=== PATIENT | female | born 1995 ===

== ENCOUNTER 2020-06-20 20:27 | Inpatient (IN) | payer BC ==
[2020-06-20] MEDS ORDERED: Misoprostol 200 MCG Tab PO PRN (22:31)
[2020-06-20] MEDS ORDERED: Water For Irrigation,Sterile 1,000 ML Container IRR PRN (22:31)
[2020-06-20] MEDS ORDERED: Sodium Chloride 0.9% 10 ML SDV IV PRN (22:31)
[2020-06-20] MEDS ORDERED: Carboprost Tromethamine 250 MCG/1 ML Amp IM PRN (22:31)
[2020-06-20] MEDS ORDERED: Sodium Chloride 0.9% 2.5 ML Syringe FLUSH PRN (22:31)
[2020-06-20] MEDS ORDERED: Lidocaine 1% 50 ML MDV INJECT PRN (22:31)
[2020-06-20] MEDS ORDERED: Butorphanol 1 MG/ML SDV IVPUSH PRN (22:31)
[2020-06-20] MEDS ORDERED: Nalbuphine 10 MG/1 ML Vial IVPUSH PRN (22:31)
[2020-06-20] MEDS ORDERED: Tranexamic Acid 1,000 MG in Sodium Chloride 0.9% 100 ML IV PRN (22:31)
[2020-06-20] MEDS ORDERED: Methylergonovine 0.2 MG/1 ML Amp IM PRN (22:31)
[2020-06-20] MEDS ORDERED: Sodium Chloride 0.9% 10 ML Syringe FLUSH PRN (22:31)
[2020-06-20] MEDS ORDERED: Terbutaline 1 MG/ML SDV SUBCUT PRN (22:33)
[2020-06-20] MEDS ORDERED: Lactated Ringers 1,000 ML IV SCH (22:45)
[2020-06-20] MEDS ORDERED: Oxytocin/0.9 % Sodium Chloride 30 UNIT/500 ML BAG IV SCH ×2 (22:45)
[2020-06-21] MEDS ORDERED: Bisacodyl 10 MG Supp RECTAL PRN (06:23)
[2020-06-21] MEDS ORDERED: oxyCODONE 5 MG Tab PO PRN (06:23)
[2020-06-21] MEDS ORDERED: Ibuprofen 800 MG Tab PO PRN (06:23)
[2020-06-21] MEDS ORDERED: Acetaminophen 500 MG Tab PO PRN ×2 (06:23)
[2020-06-21] MEDS ORDERED: Witch Hazel Medicated Pads 40/Jar TOP PRN (06:23)
[2020-06-21] MEDS ORDERED: Benzocaine/Menthol 20%-0.5% Spray 78 GM Cannister TOP PRN (06:23)
[2020-06-21] MEDS ORDERED: Ibuprofen 400 MG Tab PO PRN (06:23)
[2020-06-21] MEDS ORDERED: Lanolin 100% Cream 7 GM Tube TOP PRN (06:23)
[2020-06-21] MEDS ORDERED: Docusate Sodium 100 MG Cap PO PRN (06:23)
--- NOTE | 2020-06-21 14:23 | OR ---
SURGEON: Young Craft MD DATE OF PROCEDURE: 06/21/2020 INDICATION FOR PROCEDURE: A 25-year-old G2, P1-0-0-1 at 38 weeks and 5 days presenting with rupture of membranes. The patient reports she had a small gush of fluid around 9 a.m. in the morning, then did not have more leaking or contractions until around 10 p.m. when she noticed another gush. She presented to Labor and Delivery, was evaluated, and confirmed to be ruptured with positive AmniSure. She is GBS negative. Otherwise, she had uncomplicated . She has a history of spinal fusion and was not able to receive an epidural with her last delivery. She declined an epidural at the time. Pitocin was started for induction of labor since she had been ruptured for more than 12 hours. She did not have any signs of chorioamnionitis. She was 2 to 3 cm dilated and made cervical change with Pitocin to 5, 80, and 0. A bulging membrane was felt, AROM was performed with clear fluid. The patient had category 1 tracing. She continued to labor in the tub and was quickly progressed to fully dilated with the urge to push. PREOPERATIVE DIAGNOSES: 1. To intrauterine at 38 weeks and 5 days. 2. Premature rupture of membranes. POSTOPERATIVE DIAGNOSES: 1. To intrauterine at 38 weeks and 5 days. 2. Premature rupture of membranes. PROCEDURE PERFORMED: Normal spontaneous vaginal delivery, repair of second-degree laceration. ANESTHESIA: Local anesthesia. FINDINGS: Viable female infant, score 8 and 9. weight was 7 lbs 7oz. ESTIMATED BLOOD LOSS: 300 mL. DESCRIPTION OF PROCEDURE: The patient pushed well with contractions for approximately 20 minutes with descent to +4 station. head delivered over intact perineum, restituted LOT. Anterior shoulder delivered easily followed by posterior shoulder and remaining body. No nuchal cord was noted. The baby was placed on maternal chest and evaluated by awaiting nursery staff. The umbilical cord was clamped and cut after 60 seconds and no longer pulsating. The baby was pink, crying vigorously, and moving all extremities immediately after delivery. The umbilical cord gases were obtained. The placenta was removed with gentle traction on the umbilical cord. It was examined and found to be intact with 3- vessel cord. The labia, vagina, and perineum were examined and a second-degree perineal laceration was noted. 20 mL of 1% lidocaine with epi was injected for local anesthesia. The second-degree laceration was repaired in usual fashion with 2-0 Vicryl. Hemostasis was confirmed. Fundal massage was performed and the uterus was firm and below the umbilicus and the bleeding was light. The patient tolerated the procedure well, was given care instructions. FABIO BETANCOURT /[id number] MTDD
--- NOTE | 2020-06-22 10:25 | PCM.PNPP ---
- General Info Date of Service: 06/22/20 Functional Status: Reports: Pain Controlled, Tolerating Diet, Ambulating, Urinating - Review of Systems General: Reports: No Symptoms HEENT: Reports: No Symptoms Pulmonary: Reports: No Symptoms Cardiovascular: Reports: No Symptoms Gastrointestinal: Reports: No Symptoms Genitourinary: Reports: No Symptoms Musculoskeletal: Reports: No Symptoms Skin: Reports: No Symptoms Neurological: Reports: No Symptoms Psychiatric: Reports: No Symptoms - Patient Data Vital Signs - Most Recent: Last Vital Signs Temp 36.7 C 06/22/20 08:35 Pulse 63 06/22/20 08:35 Resp 16 06/22/20 08:35 BP 107/67 06/22/20 08:35 Pulse Ox 96 06/22/20 08:35 Weight - Most Recent: 144 lb Lab Results - Last 24 Hours: Laboratory Results - last 24 hr 06/22/20 Range/Units 05:55 Hgb 10.5 L (12.0-16.0) g/dL Hct 33.1 L (36.0-46.0) % Med Orders - Current: Current Medications Acetaminophen (Tylenol Extra Strength) 500 mg PO Q4H PRN PRN Reason: Pain Acetaminophen (Tylenol Extra Strength) 1,000 mg PO Q4H PRN PRN Reason: Pain Benzocaine/Menthol (Dermoplast Pain Relief 20%-0.5% Gleason) 78 gm TOP ASDIRECTED PRN PRN Reason: Perineal Comfort Measure Last Admin: 06/21/20 19:51 Dose: 1 canister Documented by: Bisacodyl (Dulcolax) 10 mg RECTAL ONETIME PRN PRN Reason: Constipation Docusate Sodium (Colace) 100 mg PO BID PRN PRN Reason: Constipation Emollient Ointment (Lansinoh Hpa) 0 gm TOP ASDIRECTED PRN PRN Reason: Sore Nipples Last Admin: 06/21/20 19:52 Dose: 7 gm Documented by: Ibuprofen (Motrin) 400 mg PO Q4H PRN PRN Reason: Pain Ibuprofen (Motrin) 800 mg PO Q6H PRN PRN Reason: Pain Last Admin: 06/21/20 19:50 Dose: 800 mg Documented by: Oxycodone HCl (Oxycodone) 5 mg PO Q2H PRN PRN Reason: Pain Sodium Chloride (Saline Flush) 10 ml FLUSH ASDIRECTED PRN PRN Reason: Keep Vein Open Sodium Chloride (Saline Flush) 2.5 ml FLUSH ASDIRECTED PRN PRN Reason: Keep Vein Open Sodium Chloride (Normal Saline) 10 ml IV ASDIRECTED PRN PRN Reason: IV Use Witch Jocelyne (Tucks) 1 pad TOP ASDIRECTED PRN PRN Reason: comfort care Last Admin: 06/21/20 19:51 Dose: 1 tub Documented by: Discontinued Medications Butorphanol Tartrate (Stadol) 1 mg IVPUSH Q1H PRN PRN Reason: Pain Carboprost Tromethamine (Hemabate Ds) 250 mcg IM ASDIRECTED PRN PRN Reason: Post Hemorrhage Lactated Ringer's (Ringers, Lactated) 1,000 mls @ 150 mls/hr IV ASDIRECTED IGNACIO Last Admin: 06/20/20 23:36 Dose: 150 mls/hr Documented by: Oxytocin/Sodium Chloride (Oxytocin 30 Unit/500 Ml-Ns) 30 unit in 500 mls @ 500 mls/hr IV TITRATE IGNACIO Tranexamic Acid 1,000 mg/ (Sodium Chloride) 110 mls @ 660 mls/hr IV ONETIME PRN PRN Reason: Bleeding Oxytocin/Sodium Chloride (Oxytocin 30 Unit/500 Ml-Ns) 30 unit in 500 mls @ 2 mls/hr IV TITRATE IGNACIO; Protocol Last Titration: 06/21/20 05:40 Dose: 500 munits/min, 500 mls/hr Documented by: Lidocaine HCl (Xylocaine 1%) 50 ml INJECT ONETIME PRN PRN Reason: Laceration repair Methylergonovine Maleate (Methergine) 0.2 mg IM ASDIRECTED PRN PRN Reason: Post Hemorrhage Misoprostol (Cytotec) 200 mcg PO ONETIME PRN PRN Reason: Post Hemorrhage Nalbuphine HCl (Nubain) 10 mg IVPUSH Q1H PRN PRN Reason: Pain (severe 7-10) Sterile Water (Sterile Water For Irrigation) 1,000 ml IRR ASDIRECTED PRN PRN Reason: delivery Terbutaline Sulfate (Brethine) 0.25 mg SUBCUT ASDIRECTED PRN PRN Reason: Tacysystole - Infant Interaction Disposition, : at Bedside Infant Interaction: Holding Infant Infant Feeding: Breastfed Infant; Nursed Well Support Person: - Recovery Exam Fundal Tone: Firm Fundal Level: 1 Fingerbreadths Below Umbilicus Fundal Placement: Midline Lochia Amount: Small Lochia Color: Rubra/Red Perineum Description: Intact, Minimal Bruising/Swelling Episiotomy/Laceration: Approximated Bladder Status: Voiding Urinary Elimination: Voided - Exam General: Alert, Oriented, Cooperative, No Acute Distress Neck: Supple, Trachea Midline Lungs: Normal Respiratory Effort GI/Abdominal Exam: Soft, Non-Tender, No Distention Extremities: Normal Inspection, Normal Range of Motion, Non-Tender, No Pedal Edema Skin: Warm, Dry, Intact Wound/Incisions: Healing Well Neurological: No New Focal Deficit Psy/Mental Status: Alert, Normal Affect, Normal Mood - Problem List Review Problem List Initiated/Reviewed/Updated: Yes - Assessment Assessment:: 25yo PPD1 s/p , stable and recovering well. - Plan Plan:: - ambulating and tolerating PO - hgb 10.5, bleeding light, denies s/s of anemia - well Plan for discharge home today. Reviewed care instructions.
== END 2020-06-22 16:38 | disposition home or self-care (01) | DRG 560 ==
LOC: MW.OBCHECK 20:27 → MW.OB 20:28 → MW.OBCHECK 23:31 → OBSVTOIN 06-21 05:38 → MW.OB 06-21 19:32
PROVIDERS: ADMIT Obstetrics & Gynecology; ATTEND Obstetrics & Gynecology
PROC: 10E0XZZ Delivery of Products of Conception, External Approach (ICD-10-PCS; principal; 2020-06-21)
PROC: 10907ZC Drainage of Amniotic Fluid, Therapeutic from Products of Conception, Via Natural or Artificial Opening (ICD-10-PCS; 2020-06-21)
PROC: 3E033VJ Introduction of Other Hormone into Peripheral Vein, Percutaneous Approach (ICD-10-PCS; 2020-06-21)
PROC: 0KQM0ZZ Repair Perineum Muscle, Open Approach (ICD-10-PCS; 2020-06-21)
DX: O42.92 Full-term premature rupture of membranes, unspecified as to length of time between rupture and onset of labor (principal); Z37.0 Single live birth; O70.1 Second degree perineal laceration during delivery; Z20.822 Contact with and (suspected) exposure to COVID-19; Z3A.38 38 weeks gestation of pregnancy
CPT/HCPCS: 36415; 59025; 59409; 84112; 85014; 85018; 85027; 86592; 86850; 86900; 86901; A9270-GY; J2590; J7120; U0002